=== PATIENT | female | born 1995 | race American Indian/Alaskan Native ===

== ENCOUNTER 2017-04-28 14:45 | Observation (INO) | payer MEDICAID ==
[~2017-04-28 14:45] MED LIST: ALPR0.254 PO; LORA-352 PO; OMEP20TA44 PO; PAR20T PO; VITATAB9 PO
[2017-04-28] MEDS ORDERED: PREN-153 OR (15:20)
[2017-04-28] MEDS ORDERED: LACTATED RINGER'S 1,000 ML IV ONE (15:21)
== END 2017-04-28 17:30 | disposition home or self-care (01) | DRG 566 ==
LOC: LDRP 14:45
PROVIDERS: ADMIT Obstetrics & Gynecology; ATTEND Obstetrics & Gynecology
DX: O26.892 Other specified pregnancy related conditions, second trimester (principal); R42 Dizziness and giddiness; R10.9 Unspecified abdominal pain; Z3A.26 26 weeks gestation of pregnancy; Z87.891 Personal history of nicotine dependence
CPT/HCPCS: 59025; 81002; 96360; 96361; G0378

== ENCOUNTER 2017-05-06 14:20 | Observation (INO) | payer MEDICAID ==
[~2017-05-06] VITALS: Ht 157.5 cm; Wt 81.6 kg
[~2017-05-06 14:20] MED LIST changes: +PREN-153 OR
[2017-05-06] MEDS ORDERED: NIF10C PO (14:55)
[2017-05-06] MEDS ORDERED: BETAMETHASONE ACET (6MG/ML) 5ML VIAL ONE (15:06)
[2017-05-06] MEDS ORDERED: TERBUTALINE SULFATE 1 MG/ML 1ML VIAL SC ONE (15:15)
[2017-05-06] MEDS ORDERED: BETAMETHASONE ACET (6MG/ML) 5ML VIAL IM SCH (22:00)
== END 2017-05-06 16:30 | disposition home or self-care (01) | DRG 566 ==
LOC: LDRP 14:20
PROVIDERS: ADMIT Obstetrics & Gynecology; ATTEND Obstetrics & Gynecology
DX: O62.9 Abnormality of forces of labor, unspecified (principal); O60.02 Preterm labor without delivery, second trimester; Z3A.27 27 weeks gestation of pregnancy; Z87.891 Personal history of nicotine dependence
CPT/HCPCS: 59025; 81002; 96372; G0378; J0702; J3105

== ENCOUNTER 2017-05-07 15:20 | Observation (INO) | payer MEDICAID ==
[~2017-05-07 15:20] MED LIST changes: -ALPR0.254 PO; -LORA-352 PO; +NIF10C PO; -OMEP20TA44 PO; -PAR20T PO; -VITATAB9 PO
[2017-05-07] MEDS ORDERED: BETAMETHASONE ACET (6MG/ML) 5ML VIAL IM ONE (16:09)
== END 2017-05-07 16:30 | disposition home or self-care (01) | DRG 566 ==
LOC: LDRP 15:20
PROVIDERS: ADMIT Obstetrics & Gynecology; ATTEND Obstetrics & Gynecology
DX: O26.92 Pregnancy related conditions, unspecified, second trimester (principal); Z3A.27 27 weeks gestation of pregnancy
CPT/HCPCS: 59025; 81002; G0378

== ENCOUNTER 2017-05-14 12:50 | Observation (INO) | payer MEDICAID ==
[2017-05-14] MEDS ORDERED: PROG100C4 PO (13:31)
== END 2017-05-14 14:20 | disposition home or self-care (01) | DRG 566 ==
LOC: LDRP 12:50
PROVIDERS: ADMIT Obstetrics & Gynecology; ATTEND Obstetrics & Gynecology
DX: O26.893 Other specified pregnancy related conditions, third trimester (principal); Z3A.28 28 weeks gestation of pregnancy; O60.03 Preterm labor without delivery, third trimester
CPT/HCPCS: 59025; 81002; G0378

== ENCOUNTER 2017-05-21 11:10 | Observation (INO) | payer MEDICAID ==
[~2017-05-21 11:10] MED LIST changes: +PROG100C4 PO
== END 2017-05-21 13:35 | disposition home or self-care (01) | DRG 563 ==
LOC: LDRP 11:10
PROVIDERS: ADMIT Specialist; ATTEND Specialist
DX: O60.03 Preterm labor without delivery, third trimester (principal); Z3A.29 29 weeks gestation of pregnancy
CPT/HCPCS: 59025; 76815; 76817; 81002; G0378

== ENCOUNTER 2017-06-04 14:25 | Observation (INO) | payer MEDICAID | END 2017-06-04 15:50 | disposition home or self-care (01) | DRG 566 | LOC: LDRP 14:25 | PROVIDERS: ADMIT Specialist; ATTEND Specialist | DX: O26.93 Pregnancy related conditions, unspecified, third trimester (principal); Z3A.31 31 weeks gestation of pregnancy | CPT/HCPCS: 59025; 76815; 76817; 81002; G0378 ==

== ENCOUNTER 2017-09-22 16:05 | Emergency (ER) | payer MEDICAID ==
[~2017-09-22] VITALS: Ht 157.5 cm; Wt 81.6 kg
[2017-09-22 16:38] VITALS: BP 107/62
[2017-09-22 17:33] LABS: Albumin 3.7 g/dL (3.4-5.0); BUN/Creatinine Ratio 13.9; Bilirubin, Total 0.3 mg/dL (0.2-1.0); Calcium 8.7 mg/dL (8.5-10.1); Potassium 3.7 mmol/L (3.5-5.1); Total Protein 7.5 g/dL (6.4-8.2)
[2017-09-22 17:46] LABS: Basophils # (auto) 0 uL; Basophils % (auto) 0.3 % (0.0-2.0); Eosinophils # (auto) 0.1 uL; Eosinophils % (auto) 1.2 % (0.0-7.0); Hematocrit 38.9 % (36.0-46.0); Hemoglobin 12.9 g/dL (12.2-16.2); Lymphocytes # (auto) 2.1 uL; Lymphocytes % (auto) 21.6 % (10.0-50.0); Mean Corpuscular Hemoglobin 27.4 pg (28.0-32.0); Mean Corpuscular Hgb Conc. 33.3 g/dL (32.0-36.0); Mean Corpuscular Volume 82.4 fL (80.0-100.0); Monocytes # (auto) 0.9 uL; Monocytes % (auto) 9.2 % (0.0-12.0); Neutrophils # (auto) 6.6 uL; Neutrophils % (auto) 67.7 % (37.0-80.0); Nucleated Red Blood Cells % 0.1 %; Platelet Count (auto) 360 10^3/uL (140-450); Red Blood Cells 4.72 10^6/uL (4.0-5.20); Red Cell Distribution Width 14.6 % (11.8-14.3); White Blood Cell 9.8 10^3/uL (4.4-10.8)
== END 2017-09-22 21:14 | disposition left against medical advice (07) ==
LOC: ER 16:11
DX: R10.2 Pelvic and perineal pain (principal); Z53.21 Procedure and treatment not carried out due to patient leaving prior to being seen by health care provider
CPT/HCPCS: 36415; 80053; 85025

== ENCOUNTER 2018-02-10 03:17 | Emergency (ER) | payer MEDICAID ==
[~2018-02-10] VITALS: Ht 157.5 cm; Wt 90.7 kg
[2018-02-10 04:11] LABS: Basophils # (auto) 0.1 uL; Basophils % (auto) 0.6 % (0.0-2.0); Eosinophils # (auto) 0 uL; Eosinophils % (auto) 0.1 % (0.0-7.0); Lymphocytes # (auto) 1.3 uL; Lymphocytes % (auto) 8.3 % (10.0-50.0); Mean Corpuscular Hemoglobin 28.8 pg (28.0-32.0); Mean Corpuscular Volume 82.2 fL (80.0-100.0); Monocytes # (auto) 1.2 uL; Monocytes % (auto) 7.6 % (0.0-12.0); Neutrophils # (auto) 13.3 uL; Neutrophils % (auto) 83.4 % (37.0-80.0); Nucleated Red Blood Cells % 0.1 %; Platelet Count (auto) 335 10^3/uL (140-450); Red Blood Cells 4.87 10^6/uL (4.0-5.20)
[2018-02-10 04:24] LABS: Urine Bacteria NONE SEEN /hpf (None Seen); Urine Blood Negative /uL (Negative); Urine Mucus FEW (None Seen); Urine Specific Gravity 1.021 (1.001-1.035); Urine WBC <1 /hpf (0 - 5)
[2018-02-10 04:30] LABS: Albumin 3.6 g/dL (3.4-5.0); BUN/Creatinine Ratio 11.5; Calcium 8.9 mg/dL (8.5-10.1); Potassium 3.8 mmol/L (3.5-5.1)
[2018-02-10 04:33] LABS: Bilirubin, Total 0.5 mg/dL (0.2-1.0); Total Protein 7.6 g/dL (6.4-8.2)
[2018-02-10 06:23] VITALS: BP 125/70
[2018-02-10] MEDS ORDERED: DICYCLOMINE HCL (10MG/ML) 2 ML AMPULE IM ONE (06:30)
[2018-02-10] MEDS ORDERED: cefTRIAXone SOD 1,000 MG VL IM ONE (06:30)
== END 2018-02-10 06:46 | disposition home or self-care (01) ==
LOC: ER 03:37
DX: J02.9 Acute pharyngitis, unspecified (principal); K59.00 Constipation, unspecified; Z91.040 Latex allergy status; J45.909 Unspecified asthma, uncomplicated; Z88.6 Allergy status to analgesic agent; Z79.899 Other long term (current) drug therapy
CPT/HCPCS: 36415; 74176; 80053; 81001; 81025; 83690; 85025; 96372; 99285; J0500; J0696